=== PATIENT | female | born 1960 | race Caucasian/White ===

== ENCOUNTER 2020-06-17 22:49 | Observation (INO) ==
[2020-06-17 23:56] LABS: Basophils # 0.1 10*3/uL (0.0-0.2); Basophils % 0.7 % (0.0-0.8); Eosinophils # 0.4 10*3/uL (0.0-0.87); Hematocrit 38.1 VOL% (35.7-47.0); Hemoglobin 12.3 GM/DL (12.0-16.0); Immature Granulocytes % 0.3 %; Immature Granulocytes Absolute 0.03 #; Lymphocytes # 3.1 10*3/uL (1.4-4.0); Mean Corpuscular HGB Conc 32.3 GM/DL (32-36); Mean Corpuscular Volume 92.5 FL (87-102); Mean Platelet Volume 9.3 FL (9.6-12.0); Monocytes % 7.8 % (1.7-12.7); Neutrophils % 51.2 % (38.7-73.9); Platelet Count 237 T/CUMM (130-400); Red Blood Count 4.12 MC/CUMM (3.8-5.5); White Blood Count 8.7 T/CUMM (4-12)
[2020-06-18 00:10] LABS: Alanine Aminotransferase 14 U/L (13-56); Albumin 3.9 G/DL (3.4-5.0); Alkaline Phosphatase 60 U/L (45-117); Aspartate Amino Transferase 13 U/L (0-37); Bilirubin,Total < 0.39 MG/DL (0.2-1.0); Blood Urea Nitrogen 11 MG/DL (7-18); Carbon Dioxide 30 MMOL/L (21-32); Estimated Glom Filtration Rate 79 ML/MIN; Glucose 100 MG/DL (74-106); Osmolality,Calculated 277.4 MOS/KG (273-304); Potassium 3.6 MMOL/L (3.5-5.1); Sodium 140 MMOL/L (136-145); Total Protein 7.4 G/DL (6.4-8.3)
[2020-06-18] MEDS ORDERED: LORazepam 2 MG/1 ML VIAL IM STA (00:27)
[2020-06-18] MEDS ORDERED: diphenhydrAMINE 50 MG/1 ML VIAL IM STA (00:27)
[2020-06-18] MEDS ORDERED: HALOPERIDOL 5 MG/ML AMP IM STA (00:27)
[2020-06-18] MEDS ORDERED: LORazepam 2 MG/1 ML VIAL ONE (00:28)
[2020-06-18] MEDS ORDERED: diphenhydrAMINE 50 MG/1 ML VIAL ONE (00:28)
[2020-06-18] MEDS ORDERED: HALOPERIDOL 5 MG/ML AMP ONE (00:28)
[2020-06-18 00:29] LABS: Acetaminophen < 2.0 UG/ML (10-30); Salicylate < 2.8 MG/DL (2.8-20)
[2020-06-18 01:15] LABS: Bacteria,Urine Occasional /HPF (Few); Bilirubin,Urine Negative (Negative); Blood, Urine Negative (Negative); Glucose,Urine (UA) Negative (Negative); Ketones,Urine Negative (Negative); Nitrite,Urine Negative (Negative); Protein,Urine Negative; RBC,Urine 1 /HPF (0-4); Squamous Epithelial Cell,Urine Occasional /HPF (0-10); Urine Appearance CLEAR (Clear); Urine Color Straw (Yellow); Urine Specific Gravity 1.006 (1.001-1.035); Urine Urobilinogen < 2.0 EU/DL (0.2-1.0); WBC,Urine 2 /HPF (0-6)
[2020-06-18 01:20] LABS: Barbiturates Screen,Urine Negative (Negative); Benzodiazepines Screen,Urine Positive (Negative); Cannabinoid Screen,Urine Negative (Negative); Opiate Screen,Urine Negative (Negative); Phencyclidine Screen,Urine Negative (Negative)
[2020-06-18] MEDS ORDERED: GLUCAGON 1 MG VIAL IM PRN (02:41)
[2020-06-18] MEDS ORDERED: ACETAMINOPHEN 325 MG TABLET PO PRN (02:41)
[2020-06-18] MEDS ORDERED: DEXTROSE 50% 25 GM/50 ML VIAL IV PRN (02:41)
[2020-06-18] MEDS ORDERED: ONDANSETRON 4 MG/2 ML VIAL IV PRN (02:41)
[2020-06-18] MEDS ORDERED: LORazepam 2 MG/1 ML VIAL IV PRN (02:46)
[2020-06-18] MEDS: SODIUM CHLORIDE 0.9% 1,000 ML IV SCH ×2 (03:41→11:34)
[2020-06-18] MEDS ORDERED: ENOXAPARIN 40 MG/0.4 ML SYRINGE SUBCUT SCH (06:00)
[2020-06-18 11:27] VITALS: BP 123/76
== END 2020-06-18 12:55 | disposition home or self-care (01) ==
LOC: EDUNIT# → EDBD → N.ED 22:49 → N.EDINP 22:49 → N.4E 06-18 02:41
PROVIDERS: ADMIT Internal Medicine; ATTEND Internal Medicine